=== PATIENT | female | born 1975 | race African-American/Black ===

== ENCOUNTER 2016-10-20 09:18 | Emergency (ER) | payer MEDICAID, OTHER ==
[~2016-10-20] VITALS: Ht 167.6 cm; Wt 63.5 kg
[~2016-10-20 09:18] MED LIST: AMOXICILLIN500 MG ORAL; AUGMENTIN 875-1 EAC1 ORAL; IBUPROFEN600 MG ORAL
[2016-10-20] MEDS ORDERED: NKM (09:27)
[2016-10-20 09:33] VITALS: BP 163/99
[2016-10-20] MEDS ORDERED: LIDEX15 GM TOPIC (09:42)
[2016-10-20 09:50] VITALS: BP 155/95
--- NOTE | 2016-10-20 11:43 | Emergency Room Report ---
History of Present Illness General Chief Complaint: Skin Rash/Abscess Source: Patient Present Illness HPI 41-year-old female presents to ED complaining of rash to her face x2 days. Patient states the rash is itchy, denies pain. Denies fevers or chills. Localized only to face. Has had this rash in the past and was prescribed a cream which has worked. Believes she has "dermatitis". No other aggravating or relieving factors. Denies any other associated symptoms Allergies: Coded Allergies: No Known Allergies (Unverified , 06/13/15) Patient History Past Medical History: none Past Surgical History: none Pertinent Family History: none Social History: Denies: alcohol use, drug use, smoking Last Menstrual Period: Depo Now: No Immunizations: UTD Reviewed Nursing Documentation: PMH: Agreed, PSxH: Agreed Nursing Documentation-PMH Past Medical History: No Stated History Hx Cardiac Problems: No Hx Hypertension: No Hx Cancer: No Hx Gastrointestinal Problems: No Hx Neurological Problems: No Review of Systems All Other Systems: negative except mentioned in HPI Physical Exam Vital Signs Date Time Temp Pulse Resp B/P Pulse Ox O2 Delivery O2 Flow Rate FiO2 10/20/16 09:23 97.5 125 16 163/99 100 Room Air Sp02 EP Interpretation: reviewed, normal General Appearance: no apparent distress, alert, GCS 15, non-toxic Head: normocephalic Eyes: bilateral eye PERRL, bilateral eye normal inspection ENT: normal ENT inspection Neck: normal inspection Respiratory: normal inspection Cardiovascular #1: normal inspection Gastrointestinal: normal inspection Rectal: deferred Genitourinary: no CVA tenderness Musculoskeletal: normal inspection Neurologic: normal inspection Psychiatric: normal inspection Skin: rash - erythematous, papular. nonerythematous base. no pustules Lymphatic: normal inspection Medical Decision Making Diagnostic Impression: Primary Impression: Rash and other nonspecific skin eruption ER Course Hospital Course 41-year-old female presents to ED with rash to face Differential diagnoses include: Cellulitis, dermatitis, insect bite, abscess Clinical course Patient placed on stretcher. After initial history, physical exam reveals a middle aged female in no acute distress. On exam there are multiple patches of erythematous papular rash to the face. Nonvesicular. Nonerythematous base. Consistent with a dermatitis. Patient states she responded well to Lidex in the past. Will treat the same Diagnosis - rash stable and discharged to home with prescription for Lidex. Instructed to followup with PMD. Instructed return to ED if symptoms recur or worsen Last Vital Signs Date Time Temp Pulse Resp B/P Pulse Ox O2 Delivery O2 Flow Rate FiO2 10/20/16 09:50 97.5 115 19 155/95 100 Room Air Status: improved Disposition: HOME, SELF-CARE Condition: Stable Scripts Fluocinonide* (LIDEX*) 15 Gm Cr 1 APPLIC TOPIC TID, #15 GM 0 Refills Prov: JOSS YUNG M.D. 10/20/16 Referrals: [facility],REFERRING (PCP) Patient Instructions: JOSS Forbes M.D. Oct 20, 2016 11:43
== END 2016-10-20 09:52 | disposition home or self-care (01) ==
LOC: EMR 09:43
DX: R21 Rash and other nonspecific skin eruption (principal)
CPT/HCPCS: 99283